=== PATIENT | female | born 1965 | race Hispanic/Latino ===

== ENCOUNTER → 2017-12-15 | Outpatient (CLI) | payer OTHER | LOC: MAMMO 15:30 | PROVIDERS: ATTEND Obstetrics & Gynecology | DX: Z12.31 Encounter for screening mammogram for malignant neoplasm of breast (principal) | CPT/HCPCS: 77067 ==

== ENCOUNTER → 2019-01-25 | Outpatient (CLI) | payer OTHER ==
--- NOTE | 2019-01-27 09:29 | Diagnostic Imaging Report ---
#[id number] - [id number] #BILATERAL DIGITAL SCREENING MAMMOGRAM WITH CAD: 01/25/2019 CLINICAL: Routine screening. Comparison is made to exams dated: 12/15/2017 mammogram and 08/12/2016 mammogram - [facility]. Current study contains 6 films. The tissue of both breasts is heterogeneously dense. This may lower the sensitivity of mammography. Current study was also evaluated with a Computer Aided Detection (CAD) system. Benign appearing calcifications are noted bilaterally. There is a 3 cm oval mass with an obscured margin in the left breast at 10 o'clock posterior depth. No other significant masses, calcifications, or other findings are seen in either breast. IMPRESSION: INCOMPLETE: NEEDS ADDITIONAL IMAGING EVALUATION The 3 cm oval mass in the left breast is indeterminate. Compression views as well as an ultrasound are recommended. The patient will be contacted by the Mammography Department to schedule this appointment. ARELY GREEN M.D. ct/penrad:01/26/2019 10:55:30 Cook Fruit: Melissa BRICENO(Kennedi)(Richard), [facility] letter sent: Additional Imaging Needed Mammogram BI-RADS: 0 Indeterminate
== END ==
LOC: MAMMO 08:39
PROVIDERS: ATTEND Obstetrics & Gynecology
DX: Z12.31 Encounter for screening mammogram for malignant neoplasm of breast (principal)
CPT/HCPCS: 77067

== ENCOUNTER → 2019-02-08 | Outpatient (CLI) | payer OTHER ==
--- NOTE | 2019-02-09 09:17 | Diagnostic Imaging Report ---
#[id number] - [id number] #UNILATERAL LEFT DIGITAL DIAGNOSTIC MAMMOGRAM WITH SPOT COMPRESSION: 02/08/2019 Comparison is made to exams dated: 01/25/2019 mammogram and 12/15/2017 mammogram - [facility]. Current study contains 3 films. The tissue of the left breast is heterogeneously dense. This may lower the sensitivity of mammography. There is a benign 2.7 cm oval cyst with a circumscribed margin in the left breast at 11 o'clock anterior depth. This is seen in additional views. This correlates with ultrasound findings. No other significant masses or calcifications are seen in the breast. IMPRESSION: BENIGN See the report for ultrasound performed the same day for additional details. There is no mammographic evidence of malignancy. A 1 year screening mammogram is recommended. The patient will be notified by letter of the results. ARELY GREEN M.D. ct/penrad:02/08/2019 14:31:53 Car Sales Representative: Melissa BRICENO(Kennedi)(Richard), [facility] letter sent: Normal Exam Mammogram BI-RADS: 2 Benign
--- NOTE | 2019-02-09 09:17 | Diagnostic Imaging Report ---
#[id number] - USBRELIMLT ULTRASOUND OF THE LEFT BREAST : 02/08/2019 Comparison is made to exams dated: 02/08/2019 mammogram and 01/25/2019 mammogram - [facility]. Real-time ultrasound was performed on the left breast. There is a benign 2.8 cm oval cyst with a smooth internal wall in the left breast at 11 o'clock middle depth. This oval cyst is anechoic. This correlates with mammography findings. IMPRESSION: BENIGN There is no sonographic evidence of malignancy. The 2.8 cm oval cyst in the left breast is benign. A 1 year screening mammogram is recommended. ARELY GREEN M.D. ct/penrad:02/08/2019 16:17:01 Software Release Manager: Lolis Ch [facility], [facility] letter sent: Normal Exam Ultrasound BI-RADS: 2 Benign
== END ==
LOC: MAMMO 12:37
PROVIDERS: ATTEND Obstetrics & Gynecology
DX: N63.20 Unspecified lump in the left breast, unspecified quadrant (principal)

== ENCOUNTER → 2020-02-14 | Outpatient (CLI) | payer OTHER | LOC: MAMMO 09:31 | PROVIDERS: ATTEND Obstetrics & Gynecology | DX: Z12.31 Encounter for screening mammogram for malignant neoplasm of breast (principal) | CPT/HCPCS: 77067 ==